=== PATIENT | female | born 1975 | race African-American/Black ===

== ENCOUNTER 2020-12-28 09:17 | Emergency (ER) | payer SELFPAY ==
[~2020-12-28] VITALS: Ht 162.6 cm; Wt 70.6 kg
[2020-12-28 10:40] LABS: HEMOGLOBIN 12.6 g/dl (12.0-15.5); MEAN CORPUSCULAR HGB CONC 31.5 g/dl (32.0-36.5); MEAN CORPUSCULAR VOLUME 88.9 fl (80.0-96.0); PLATELET COUNT, AUTOMATED 322 10^3/uL (150-450)
[2020-12-28 11:02] LABS: AMPHETAMINES LEVEL URINE NEGATIVE (NEGATIVE); BARBITURATES URINE NEGATIVE (NEGATIVE); BENZODIAZEPINES URINE NEGATIVE (NEGATIVE); CANNABINOIDS URINE NEGATIVE (NEGATIVE); COCAINE METABOLITE URINE NEGATIVE (NEGATIVE); METHADONE URINE NEGATIVE (NEGATIVE); OPIATES URINE NEGATIVE (NEGATIVE); PHENCYCLIDINE URINE NEGATIVE (NEGATIVE)
[2020-12-28 11:07] LABS: HCG, SERUM QUALITATIVE NEGATIVE (NEGATIVE)
[2020-12-28 11:20] LABS: ACETAMINOPHEN LEVEL < 2.0 UG/ML (10.0-30.0); ALBUMIN 3.8 GM/DL (3.2-5.2); ALT/SGPT 14 U/L (12-78); BILIRUBIN,DIRECT 0.1 MG/DL (0.0-0.2); BILIRUBIN,TOTAL 0.5 MG/DL (0.2-1.0); BLOOD UREA NITROGEN 7 MG/DL (7-18); CALCIUM LEVEL 9.2 MG/DL (8.5-10.1); CARBON DIOXIDE LEVEL 25 MEQ/L (21-32); CHLORIDE LEVEL 108 MEQ/L (98-107); CREATININE FOR GFR 0.67 MG/DL (0.55-1.30); ETHYL ALCOHOL (ETHANOL) < 0.003 % (0.000-0.010); GLOMERULAR FILTRATION RATE > 60.0 (>58); GLUCOSE, FASTING 100 MG/DL (70-100); POTASSIUM SERUM 3.6 MEQ/L (3.5-5.1); SALICYLATE LEVEL < 1.7 MG/DL (5.0-30.0); SODIUM LEVEL 139 MEQ/L (136-145); TOTAL PROTEIN 7.8 GM/DL (6.4-8.2)
--- NOTE | 2020-12-28 11:32 | REP ---
INDICATION: altered mental status. COMPARISON: None. TECHNIQUE: Helical scanning is acquired. 5 mm axial images were reformatted. Coronal MPR images were generated. FINDINGS: Bone window settings demonstrate an intact bony calvarium. There is no evidence of skull fracture or incidental bony calvarial lesion. The visualized paranasal sinuses appear clear. No intraorbital abnormality is seen. On soft tissue window setting images; the lateral, third, and fourth ventricles are normal in size and position. Gómez-white differentiation pattern is normal above and below the tentorium. There are is no evidence of intracranial hemorrhage. No mass, edema, infarction, or midline shift is seen. No extra-axial fluid collection is appreciated. IMPRESSION: Negative noncontrast head CT. <Electronically signed by Westley Moore > 12/28/20 1121
[2020-12-29 00:21] LABS: RSV AMPLIFICATION NEGATIVE (NEGATIVE)
[2020-12-29 09:28] VITALS: BP 142/84
--- NOTE | 2020-12-30 16:36 | ECGEPIP ---
[facility] - ED Test Date: 2020-12-28 Pat Name: VALERIA GUERRERO Department: Room: - Gender: Female Scalp Treatment Specialist: IRWIN : 1975 Requested By: Juany Chen Order Number: [id number] Reading MD: Juany Chen Measurements Intervals [place] Rate: 79 P: 57 [place]: 172 QRS: 15 QRSD: 82 T: 16 QT: 390 QTc: 447 Interpretive Statements Normal sinus rhythm Voltage criteria for left ventricular hypertrophy ( R in aVL , Sokolow-Garner , [place] product ) Septal infarct , age undetermined, clinical correlation No prior Electronically Signed on 12-30-2020 16:36:17 EDT by Juany Chen
== END 2020-12-29 09:28 ==
LOC: M ED 09:17
DX: F23 Brief psychotic disorder (principal); Z88.0 Allergy status to penicillin